=== PATIENT | female | born 1980 ===

== ENCOUNTER 2018-09-28 13:21 | Day surgery (SDC) | payer OTHER ==
[~2018-09-28] VITALS: Ht 170.2 cm; Wt 110.1 kg
[2018-09-28 13:57] VITALS: BP 143/99; PULSE 97; TEMP 97.6
[2018-09-28] MEDS ORDERED: ZOCOR 40MG40 MG PO (14:00)
[2018-09-28] MEDS ORDERED: ONGLYZA5 MG PO (14:00)
[2018-09-28] MEDS ORDERED: NEXIUM 20MG20 MG PO (14:01)
[2018-09-28] MEDS ORDERED: TOPAMAX50 MG PO (14:01)
[2018-09-28 16:05] VITALS: BP 123/83; PULSE 102; TEMP 99.1
--- NOTE | 2018-09-28 16:05 | NUR ---
Patient brought back to [facility], alert and oriented. Denies any pain or nausea. Vital signs stable. States she would like water and chocolate pudding. at bedside. Will continue to monitor.
[2018-09-28 16:20] VITALS: BP 128/85; PULSE 89
--- NOTE | 2018-09-28 16:20 | NUR ---
Patient tolerating food and drink without difficulty. Will continue to monitor.
[2018-09-28 16:35] VITALS: BP 122/83; PULSE 91; TEMP 97.5
--- NOTE | 2018-09-28 16:35 | NUR ---
Patient states she is feeling well and ready to go home. Will continue to monitor.
--- NOTE | 2018-09-28 16:50 | NUR ---
Discharge instructions reviewed with patient and family. All questions answered. IV removed, tolerated well. Patient to get changed at this time.
--- NOTE | 2018-09-28 16:56 | NUR ---
Patient brought down to lobby via wheel chair. To be driven home by Mina.
== END 2018-09-28 16:56 | disposition home or self-care (01) ==
LOC: SDCO 13:21
DX: R19.7 Diarrhea, unspecified (principal); K21.9 Gastro-esophageal reflux disease without esophagitis; E78.5 Hyperlipidemia, unspecified; E11.9 Type 2 diabetes mellitus without complications; K59.00 Constipation, unspecified; E78.00 Pure hypercholesterolemia, unspecified; K76.0 Fatty (change of) liver, not elsewhere classified; D50.9 Iron deficiency anemia, unspecified; R53.83 Other fatigue; Z80.9 Family history of malignant neoplasm, unspecified; Z83.79 Family history of other diseases of the digestive system
CPT/HCPCS: J2704

== ENCOUNTER → 2018-10-12 | Outpatient (CLI) | payer OTHER ==
[2018-10-12] VITALS (11 sets, daily range): BP systolic 124–149; BP diastolic 81–94; PULSE 79–98
[~2018-10-12] VITALS: Ht 170.2 cm; Wt 109.6 kg
[~2018-10-12] MED LIST: NEXIUM 20MG20 MG PO; ONGLYZA5 MG PO; TOPAMAX50 MG PO; ZOCOR 40MG40 MG PO
--- NOTE | 2018-10-12 13:35 | NUR ---
pt to u/s per ambulation. Pt positioned supine on table. Monitors applied.
--- NOTE | 2018-10-12 13:48 | NUR ---
Dr Egan obtained specimens and placed them in formalin. Specimen labeled.
--- NOTE | 2018-10-12 14:55 | NUR ---
Pt given water and pudding to eat.
--- NOTE | 2018-10-12 15:25 | NUR ---
Pt up to bathroom clothes put back on at this time.
== END ==
LOC: COL.RAD 12:38
DX: K76.0 Fatty (change of) liver, not elsewhere classified (principal); K76.89 Other specified diseases of liver; K59.00 Constipation, unspecified

== ENCOUNTER → 2023-07-05 | Outpatient (CLI) | payer OTHER | LOC: MHCPAIN 13:00 | DX: M48.02 Spinal stenosis, cervical region (principal); M54.12 Radiculopathy, cervical region; M47.812 Spondylosis without myelopathy or radiculopathy, cervical region | CPT/HCPCS: G0463 ==

== ENCOUNTER → 2023-07-15 | Outpatient (CLI) | payer OTHER ==
[~2023-07-15] MED LIST changes: +Iohexol 300 - 10 ML VIAL ONE; +Lidocaine PF 2% (20 MG/ML) 2 ML VIAL ONE
== END ==
LOC: MHCPAIN 09:21
DX: M54.12 Radiculopathy, cervical region (principal); M50.30 Other cervical disc degeneration, unspecified cervical region; E11.9 Type 2 diabetes mellitus without complications; Z79.84 Long term (current) use of oral hypoglycemic drugs
CPT/HCPCS: J1100; Q9967

== ENCOUNTER → 2023-11-23 | Outpatient (CLI) | payer OTHER ==
[~2023-11-23] MED LIST changes: -Iohexol 300 - 10 ML VIAL ONE; -Lidocaine PF 2% (20 MG/ML) 2 ML VIAL ONE
== END ==
LOC: MHCPAIN 09:20
DX: M48.02 Spinal stenosis, cervical region (principal); M54.12 Radiculopathy, cervical region; M48.8X2 Other specified spondylopathies, cervical region
CPT/HCPCS: G0463